=== PATIENT | female | born 1995 | race Caucasian/White ===

== ENCOUNTER 2018-09-17 23:40 | Emergency (ER) | payer BC ==
[~2018-09-17] VITALS: Ht 154.9 cm; Wt 72.6 kg
[2018-09-18 01:02] VITALS: BP 126/82
== END 2018-09-18 01:30 | disposition home or self-care (01) ==
LOC: ER 23:44
DX: K64.9 Unspecified hemorrhoids (principal); K12.0 Recurrent oral aphthae; G47.00 Insomnia, unspecified; F32.9 Major depressive disorder, single episode, unspecified; F17.200 Nicotine dependence, unspecified, uncomplicated

== ENCOUNTER 2018-09-26 17:53 | Emergency (ER) | payer BC ==
[~2018-09-26] VITALS: Ht 165.1 cm; Wt 79.4 kg
--- NOTE | 2018-09-26 17:57 | NUR ---
PT CALLED TO TRIAGE, PT NOT IN THE WAITING ROOM
--- NOTE | 2018-09-26 18:02 | NUR ---
CAME IN FOR R LOWER EXTREMITY PAIN AND SWELLING FOR THE PAST 3 DAYS. TO ER BED 10, HOOKED TO MONITOR, PROVIDED W WARM BLANKET, AWAITING MD BEACH
--- NOTE | 2018-09-26 18:04 | NUR ---
JOSELITO CASTANO AT BEDSIDE
--- NOTE | 2018-09-26 18:08 | NUR ---
Carlin moore in ED - 09/26/18 at 1823 by SUHAIL CAME IN FOR R LOWER EXTREMITY PAIN AND SWELLING FOR THE PAST 3 DAYS. TO ER BED 10, HOOKED TO MONITOR, PROVIDED W WARM BLANKET, AWAITING MD BEACH
[2018-09-26] MEDS ORDERED: IBUPROFEN 600 MG TABLET PO ONE ×2 (18:17→18:30)
--- NOTE | 2018-09-26 18:22 | NUR ---
US TECH AT BEDSIDE
[2018-09-26 18:36] LABS: APPEARANCE,URINE Clear (CLEAR); BILIRUBIN,URINE Negative (NEGATIVE); BLOOD, URINE Negative Ery/uL (NEGATIVE); COLOR,URINE Yellow (YELLOW); KETONES,URINE Negative (NEGATIVE); LEUKOCYTE ESTERASE ,URINE Negative (NEGATIVE); NITRITE, URINE Negative (NEGATIVE); PROTEIN,URINE Negative (NEGATIVE); UGLUCOSE Negative (NEGATIVE); UROBILINOGEN,URINE 0.2 EU/dL (0.2)
--- NOTE | 2018-09-26 18:43 | NUR ---
[employer] MODELER AT BEDSIDE
[2018-09-26 18:58] VITALS: BP 137/82
[2018-09-26 19:15] LABS: ALBUMIN 2.7 g/dL (3.4-5.0); BILIRUBIN,DIRECT 0.1 mg/dL (0.0-0.2); BILIRUBIN,TOTAL 0.3 mg/dL (0.2-1.0); CALCIUM, SERUM 8.6 mg/dL (8.5-10.1); CREATININE 0.6 mg/dL (0.6-1.3); POTASSIUM 4.1 mmol/L (3.5-5.1); TOTAL PROTEIN, SERUM 6.6 g/dL (6.4-8.2)
--- NOTE | 2018-09-26 19:17 | NUR ---
REPORT GIVEN TO CHAPITO KIRAN FOR JAI
[2018-09-26 20:09] LABS: HEMATOCRIT 30 % (33-45); HEMOGLOBIN 10.5 g/dL (11.5-14.8); MEAN CORPUSCULAR HGB CONC 35 g/dl (31.0-36.0); MEAN CORPUSCULAR VOLUME 83 fL (82-100); PLATELET COUNT (AUTO) 335 /CMM (150-450); RED BLOOD CELL COUNT(AUTO) 3.57 MIL/uL (4.0-5.2); WHITE BLOOD COUNT (AUTO) 8.5 K/uL (4.3-11.0)
[2018-09-26] MEDS ORDERED: diphenhydrAMINE HCL 50 MG CAPSULE ONE (20:12)
[2018-09-26 20:15] LABS: EOSINOPHILS % (MANUAL) 3 % (0-4); LYMPHOCYTES % (MANUAL) 31 % (16-48); MONOCYTES % (MANUAL) 3 % (0-11.0); NEUTROPHILS % (MANUAL) 63 (42-76)
[2018-09-26] MEDS ORDERED: diphenhydrAMINE HCL 50 MG CAPSULE PO ONE (20:30)
--- NOTE | 2018-09-26 20:32 | NUR ---
Patient discharged to home in stable condition. Written and verbal after care instructions given. Patient verbalizes understanding of instruction. PT AMBULATORY WITH STEADY GAIT ACCOMPANIED BY FAMILY.
== END 2018-09-26 20:34 | disposition home or self-care (01) ==
LOC: ER 17:53
DX: R60.0 Localized edema (principal); D64.9 Anemia, unspecified; K59.00 Constipation, unspecified; F32.9 Major depressive disorder, single episode, unspecified; G47.00 Insomnia, unspecified; F17.200 Nicotine dependence, unspecified, uncomplicated; Z94.5 Skin transplant status; Z87.39 Personal history of other diseases of the musculoskeletal system and connective tissue; Z86.718 Personal history of other venous thrombosis and embolism; Z86.711 Personal history of pulmonary embolism
CPT/HCPCS: 36415; 80048; 80076; 81001; 84703; 85025; 93971; 99284; Q0163; 81000-TC